=== PATIENT | male | born 1955 | race Caucasian/White ===

== ENCOUNTER 2018-03-04 04:03 | Emergency (ER) | payer MEDICAID, OTHER ==
[~2018-03-04] VITALS: Ht 177.8 cm; Wt 86.4 kg
[~2018-03-04 04:03] MED LIST: ACET-784 PO; SERT50TA12 PO; TRAZ-147 PO
[2018-03-04] MEDS ORDERED: PERTUSS(ACELL),DIPH,TET VAC/PF 0.5 ML VIAL IM ONE (05:00)
[2018-03-04] MEDS ORDERED: BUPIVACAINE HCL/PF 0.25% 10 ML VIAL INJ ONE (05:00)
[2018-03-04] MEDS ORDERED: BACITRACIN 0.9 GM PACKET OINTMENT TP ONE (05:45)
[2018-03-04 06:01] VITALS: BP 126/71
== END 2018-03-04 07:15 | disposition home or self-care (01) ==
LOC: EMS 04:04
DX: S61.217A Laceration without foreign body of left little finger without damage to nail, initial encounter (principal); F10.129 Alcohol abuse with intoxication, unspecified; G89.29 Other chronic pain; M79.604 Pain in right leg; F17.210 Nicotine dependence, cigarettes, uncomplicated; W19.XXXA Unspecified fall, initial encounter; Y93.89 Activity, other specified; Y92.89 Other specified places as the place of occurrence of the external cause; Y99.8 Other external cause status
CPT/HCPCS: 12001; 90471; 90715; 99283; 99406; J3490

== ENCOUNTER 2018-04-17 00:52 | Emergency (ER) | payer OTHER ==
[~2018-04-17] VITALS: Ht 180.3 cm; Wt 86.0 kg
[2018-04-17 06:22] VITALS: BP 137/82
[2018-04-17] MEDS ORDERED: KETOROLAC TROMETHAMINE 60 MG/2 ML VIAL IM ONE (06:45)
== END 2018-04-17 06:49 | disposition home or self-care (01) ==
LOC: EMS 00:53
DX: M25.561 Pain in right knee (principal); M79.632 Pain in left forearm; F17.210 Nicotine dependence, cigarettes, uncomplicated; W18.39XA Other fall on same level, initial encounter; Y93.89 Activity, other specified; Y92.89 Other specified places as the place of occurrence of the external cause; Y99.8 Other external cause status
CPT/HCPCS: 96372; 99283; J1885

== ENCOUNTER 2018-05-04 11:44 | Inpatient (IN) | payer OTHER ==
[~2018-05-04] VITALS: Ht 172.7 cm; Wt 75.1 kg
[2018-05-04] MEDS ORDERED: PROPOFOL 1000 MG/ISO-OSM 100 ML IV ONE (11:54)
[2018-05-04] MEDS ORDERED: ETOMIDATE 2 MG/ML 10 ML VIAL IVP ONE (12:00)
[2018-05-04] MEDS ORDERED: NALOXONE HCL 1 MG/ML 2 ML SYG IVP ONE (12:00)
[2018-05-04] MEDS ORDERED: SUCCINYLCHOLINE CHLORIDE 20 MG/ML 10 ML VIAL IVP ONE (12:00)
[2018-05-04] MEDS ORDERED: HYDR-2924 PO (12:09)
[2018-05-04] MEDS ORDERED: LISI1TAB13 PO (12:09)
[2018-05-04] MEDS ORDERED: QUET25TA PO (12:09)
[2018-05-04 12:18] LABS: APPEARANCE,URINE CLOUDY (CLEAR); BILIRUBIN,URINE NEGATIVE (NEGATIVE); GLUCOSE, URINE (UA) NEGATIVE (NEGATIVE); KETONES,URINE NEGATIVE (NEGATIVE); LEUKOCYTE ESTERASE ,URINE NEGATIVE (NEGATIVE); NITRATE,URINE NEGATIVE (NEGATIVE); OCCULT BLOOD,URINE MODERATE (NEGATIVE); PROTEIN,URINE SEE CONFIRM (NEGATIVE); UROBILINOGEN,URINE 0.2 mg/dL (<=1.0)
[2018-05-04 12:24] LABS: AMPHET/METH SCREEN,URINE NEGATIVE (NEGATIVE); BARBITURATE SCREEN, URINE NEGATIVE (NEGATIVE); BENZODIAZEPINES SCREEN,URINE NEGATIVE (NEGATIVE); CANNABINOID SCREEN,URINE NEGATIVE (NEGATIVE); COCAINE SCREEN,URINE NEGATIVE (NEGATIVE); METHADONE SCREEN, URINE NEGATIVE (NEGATIVE); OPIATE SCREEN,URINE NEGATIVE (NEGATIVE); PHENCYCLIDINE SCREEN,URINE NEGATIVE (NEGATIVE)
[2018-05-04 12:33] LABS: ABG PH 7.272 (7.35-7.450); SITE, BLOOD GAS RT RADIAL; SOURCE, BLOOD GAS ARTERIAL; TEMPERATURE, FAHRENHEIT, BG 98.6 FAHREN (96.0-98.6)
[2018-05-04 12:34] LABS: ABG BASE EXCESS -4.7 mmol/L (-2.0-3.0); ABG CARBOXYHEMOGLOBIN 4.9 % (0.0-1.5); ABG HCO3 20.5 mmol/L (22.0-26.0); ABG METHEMOGLOBIN 0.5 % (0.0-1.5); ABG OXYHEMOGLOBIN 94.5 % (94.0-100.0); ABG PCO2 49 mmHg (35-45); PO2, ARTERIAL BG 436.7 mmHg (79.0-87.0)
[2018-05-04 12:35] LABS: ABG A-A DIFF O2 227.1 mmHg (10-20.0); ABG OXYGEN CONTENT 19.8 mL/dL (15.0-23.0); ABG OXYGEN SATURATION 99.9 % (95.0-98.0); O2 DEVICE,BLOOD GAS VENTILATOR (ROOM AIR); PEEP,BG 5 cm H2O; VT, ABG 550 ml
[2018-05-04 12:36] LABS: BASOPHILS % (AUTO) 0.6 % (0.0-2.0); EOSINOPHILS % (AUTO) 0.1 % (1.0-6.0); HEMATOCRIT 42.1 % (41-53); HEMOGLOBIN 14.3 g/dL (13.5-17.5); LYMPHOCYTES # (AUTO) 1.4 K/uL (1.0-4.8); LYMPHOCYTES % (AUTO) 9.8 % (22.0-44.0); MEAN CORPUSCULAR HEMOGLOBIN 33.7 pg (26.0-34.0); MEAN CORPUSCULAR HGB CONC 33.9 G/dL (31.0-37.0); MEAN CORPUSCULAR VOLUME 99 fL (80-100); MONOCYTES # (AUTO) 0.7 K/uL (0.1-1.0); MONOCYTES % (AUTO) 4.6 % (2.0-9.0); NEUTROPHILS # (AUTO) 12.4 K/uL (1.8-7.7); NEUTROPHILS % (AUTO) 84.9 % (40.0-70.0); PLATELET COUNT (AUTO) 235 K/uL (150-450); RED BLOOD CELL COUNT(AUTO) 4.24 MIL/uL (4.50-5.90); RED CELL DISTRIBUTION WIDTH 14.5 % (11.5-14.5)
[2018-05-04 12:46] LABS: SULFOSALICYLIC ACID,URINE Trace (Negative)
[2018-05-04 12:47] LABS: INR 0.9 (0.9-1.1); PROTHROMBIN TIME 9.6 SEC (9.4-11.6)
[2018-05-04 12:48] LABS: BACTERIA,URINE Few /HPF (None Seen)
[2018-05-04 12:49] LABS: SQUAMOUS EPITHELIAL CELL,UR Rare /LPF (None Seen)
[2018-05-04 12:49] LABS: ANION GAP 11 mmol/L (8-16); CALCIUM, TOTAL 8.1 mg/dL (8.8-10.5); CARBON DIOXIDE 25 mmol/L (22-29); CHLORIDE 105 mmol/L (98-107); CREATININE 0.94 mg/dL (0.60-1.30); GLOMERULAR FILTR. RATE CALC > 60 mL/min (>60); GLUCOSE,RANDOM 150 mg/dL (70-110); POTASSIUM 4.8 mmol/L (3.5-5.1); SODIUM SERUM 141 mmol/L (136-145); UREA NITROGEN, BLOOD 13 mg/dL (7-18)
[2018-05-04 12:51] LABS: HYALINE CASTS, URINE 0-2 /LPF (None Seen)
[2018-05-04 12:52] LABS: AMORPHOUS SEDIMENT,UR Few /LPF (None Seen)
[2018-05-04] MEDS: PROPOFOL 1000 MG/ISO-OSM 100 ML IV PRN ×2 (12:52→21:08)
[2018-05-04 12:56] LABS: AMMONIA 46 umol/L (11-32); SALICYLATE 3.7 mg/dL (2.8-20.0)
[2018-05-04 12:57] LABS: TROPONIN I < 0.02 ng/mL (0.00-0.05)
[2018-05-04 13:13] LABS: ALANINE AMINOTRANSFERASE 37 U/L (12-78); ALBUMIN 3.7 g/dL (3.4-5.0); ALKALINE PHOSPHATASE 113 U/L (46-116); ASPARTATE AMINOTRANSFERASE 40 U/L (15-37); BILIRUBIN,TOTAL 0.3 mg/dL (0.1-1.0); CREATINE KINASE MB 2.1 ng/mL (0-5); CREATINE KINASE, TOTAL 303 U/L (39-308); TOTAL PROTEIN, SERUM 7.6 g/dL (6.4-8.2)
[2018-05-04 13:27] LABS: ACETAMINOPHEN < 2 mcg/mL (10-30)
[2018-05-04] MEDS ORDERED: LORazepam 2 MG/ML VIAL IVP PRN (13:30)
[2018-05-04] MEDS ORDERED: LevETIRAcetam 1,000 MG in DEXTROSE 5%-WATER 100 ML IV ONE (13:30)
[2018-05-04] MEDS ORDERED: MAGNESIUM HYDROXIDE SUSPENSION 30 ML UDCUP PO PRN (13:30)
[2018-05-04] MEDS ORDERED: IOVERSOL 350 MG/ML 100 ML VIAL ONE (14:00)
[2018-05-04 16:00] VITALS: BP 156/71
[2018-05-04 20:00] VITALS: BP 163/67
[2018-05-04] MEDS: DOCUSATE SODIUM 100 MG CAPSULE PO SCH (21:08)
[2018-05-04 22:00] VITALS: BP 134/67
[2018-05-05] VITALS (8 sets, daily range): BP systolic 126–169; BP diastolic 43–74
[2018-05-05] MEDS ORDERED: PROPOFOL 1000 MG/ISO-OSM 100 ML IV PRN (03:12)
[2018-05-05 05:06] LABS: BASOPHILS % (AUTO) 0.5 % (0.0-2.0); HEMATOCRIT 39.2 % (41-53); HEMOGLOBIN 13.5 g/dL (13.5-17.5); LYMPHOCYTES # (AUTO) 2.6 K/uL (1.0-4.8); MEAN CORPUSCULAR HEMOGLOBIN 33.8 pg (26.0-34.0); MEAN CORPUSCULAR HGB CONC 34.4 G/dL (31.0-37.0); MEAN CORPUSCULAR VOLUME 98 fL (80-100); MONOCYTES # (AUTO) 0.7 K/uL (0.1-1.0); MONOCYTES % (AUTO) 7.1 % (2.0-9.0); NEUTROPHILS # (AUTO) 6.3 K/uL (1.8-7.7); NEUTROPHILS % (AUTO) 64.4 % (40.0-70.0); PLATELET COUNT (AUTO) 202 K/uL (150-450); RED BLOOD CELL COUNT(AUTO) 3.99 MIL/uL (4.50-5.90); RED CELL DISTRIBUTION WIDTH 14.1 % (11.5-14.5)
[2018-05-05 05:23] LABS: ANION GAP 7 mmol/L (8-16); CALCIUM, TOTAL 8.1 mg/dL (8.8-10.5); CARBON DIOXIDE 27 mmol/L (22-29); CHLORIDE 106 mmol/L (98-107); CREATININE 0.85 mg/dL (0.60-1.30); GLOMERULAR FILTR. RATE CALC > 60 mL/min (>60); GLUCOSE,RANDOM 84 mg/dL (70-110); POTASSIUM 3.8 mmol/L (3.5-5.1); SODIUM SERUM 140 mmol/L (136-145); UREA NITROGEN, BLOOD 10 mg/dL (7-18)
[2018-05-05 08:35] LABS: ABG A-A DIFF O2 116.3 mmHg (10-20.0); ABG BASE EXCESS -0.2 mmol/L (-2.0-3.0); ABG CARBOXYHEMOGLOBIN 1.3 % (0.0-1.5); ABG HCO3 24.7 mmol/L (22.0-26.0); ABG METHEMOGLOBIN 0.3 % (0.0-1.5); ABG OXYGEN CONTENT 18.5 mL/dL (15.0-23.0); ABG OXYGEN SATURATION 98.1 % (95.0-98.0); ABG OXYHEMOGLOBIN 96.5 % (94.0-100.0); ABG PCO2 35 mmHg (35-45); ABG PH 7.454 (7.35-7.450); ABG TOTAL HEMOGLOBIN 13.6 G/dL (12.0-18.0); PO2, ARTERIAL BG 93.6 mmHg (79.0-87.0); SOURCE, BLOOD GAS ARTERIAL; TEMPERATURE, FAHRENHEIT, BG 97.3 FAHREN (96.0-98.6)
[2018-05-05 08:36] LABS: O2 DEVICE,BLOOD GAS VENTILATOR (ROOM AIR); PEEP,BG 5 cm H2O; SITE, BLOOD GAS RT RADIAL; VT, ABG 550 ml
[2018-05-05] MEDS: DOCUSATE SODIUM 100 MG CAPSULE PO SCH ×2 (09:00→21:00)
[2018-05-05] MEDS: ASPIRIN 81 MG CHEWABLE TABLET PO SCH (09:00)
[2018-05-05] MEDS: PANTOPRAZOLE SODIUM 40 MG/VIAL IVP SCH (09:46)
[2018-05-05 12:10] LABS: THYROID STIMULATING HORMONE 3.43 uIU/mL (0.36-3.74)
[2018-05-05] MEDS: AmLODIPine BESYLATE 5 MG TABLET PO SCH (15:03)
[2018-05-05] MEDS: ACETAMINOPHEN 325 MG TABLET PO PRN (15:03)
[2018-05-06] VITALS (7 sets, daily range): BP systolic 118–141; BP diastolic 41–76
[2018-05-06] MEDS: AmLODIPine BESYLATE 5 MG TABLET PO SCH (07:58)
[2018-05-06] MEDS: ASPIRIN 81 MG CHEWABLE TABLET PO SCH (07:58)
[2018-05-06] MEDS: PANTOPRAZOLE SODIUM 40 MG/VIAL IVP SCH (07:58)
[2018-05-06] MEDS: ACETAMINOPHEN 325 MG TABLET PO PRN ×3 (07:59→20:06)
[2018-05-06] MEDS: DOCUSATE SODIUM 100 MG CAPSULE PO SCH ×2 (07:59→20:01)
[2018-05-06] MEDS: AmLODIPine BESYLATE 10 MG TABLET PO SCH (09:00)
[2018-05-06] MEDS ORDERED: AmLODIPine BESYLATE 5 MG TABLET PO ONE (12:00)
[2018-05-06] MEDS: CefTRIAXone SODIUM 1 GM in DEXTROSE 5%-WATER 10 ML IV SCH (12:55)
[2018-05-06] MEDS: AMINO ACIDS/PROTEIN HYDROLYS 30 ML TUBE PO SCH (20:01)
[2018-05-07] VITALS (10 sets, daily range): BP systolic 108–156; BP diastolic 23–105
[2018-05-07] MEDS: ACETAMINOPHEN 325 MG TABLET PO PRN ×2 (04:39→17:02)
[2018-05-07 06:18] LABS: ANION GAP 6 mmol/L (8-16); CALCIUM, TOTAL 8.6 mg/dL (8.8-10.5); CARBON DIOXIDE 29 mmol/L (22-29); CHLORIDE 104 mmol/L (98-107); CREATININE 0.83 mg/dL (0.60-1.30); GLOMERULAR FILTR. RATE CALC > 60 mL/min (>60); GLUCOSE,RANDOM 87 mg/dL (70-110); POTASSIUM 3.7 mmol/L (3.5-5.1); SODIUM SERUM 139 mmol/L (136-145); UREA NITROGEN, BLOOD 12 mg/dL (7-18)
[2018-05-07 06:20] LABS: BASOPHILS % (AUTO) 0.5 % (0.0-2.0); EOSINOPHILS % (AUTO) 1.2 % (1.0-6.0); HEMATOCRIT 42.8 % (41-53); HEMOGLOBIN 15.2 g/dL (13.5-17.5); LYMPHOCYTES # (AUTO) 2.3 K/uL (1.0-4.8); LYMPHOCYTES % (AUTO) 33.1 % (22.0-44.0); MEAN CORPUSCULAR HEMOGLOBIN 34.5 pg (26.0-34.0); MEAN CORPUSCULAR HGB CONC 35.5 G/dL (31.0-37.0); MEAN CORPUSCULAR VOLUME 97 fL (80-100); MONOCYTES # (AUTO) 0.5 K/uL (0.1-1.0); MONOCYTES % (AUTO) 7.2 % (2.0-9.0); NEUTROPHILS # (AUTO) 4.1 K/uL (1.8-7.7); PLATELET COUNT (AUTO) 224 K/uL (150-450); RED CELL DISTRIBUTION WIDTH 13.9 % (11.5-14.5)
[2018-05-07] MEDS ORDERED: AmLODIPine BESYLATE 10 MG TABLET PO SCH (09:00)
[2018-05-07] MEDS: PANTOPRAZOLE SODIUM 40 MG/VIAL IVP SCH (09:14)
[2018-05-07] MEDS: ASPIRIN 81 MG CHEWABLE TABLET PO SCH (09:14)
[2018-05-07] MEDS: AmLODIPine BESYLATE 10 MG TABLET PO SCH (09:14)
[2018-05-07] MEDS: DOCUSATE SODIUM 100 MG CAPSULE PO SCH ×2 (09:15→21:08)
[2018-05-07] MEDS: AMINO ACIDS/PROTEIN HYDROLYS 30 ML TUBE PO SCH (09:15)
[2018-05-07] MEDS ORDERED: MAGNESIUM SULFATE 4 GM/WATER 100 ML IV PRN (10:15)
[2018-05-07] MEDS ORDERED: POTASSIUM CHLORIDE 20 MEQ ER TABLET PO PRN ×2 (10:15)
[2018-05-07] MEDS ORDERED: POTASSIUM CHLORIDE 10% 40 MEQ/30 ML LIQUID UDCUP PO PRN (10:15)
[2018-05-07] MEDS ORDERED: POTASSIUM CHL 10 MEQ/WATER 50 ML IV PRN (10:15)
[2018-05-07] MEDS ORDERED: MAGNESIUM SULFATE 2 GM/WATER 50 ML IV PRN (10:15)
[2018-05-07] MEDS: MAGNESIUM OXIDE 400 MG TABLET PO PRN ×3 (11:08→17:02)
[2018-05-07] MEDS: CefTRIAXone SODIUM 1 GM in DEXTROSE 5%-WATER 10 ML IV SCH (11:09)
[2018-05-07 11:47] LABS: ALBUMIN 3.5 g/dL (3.4-5.0)
[2018-05-08] VITALS (8 sets, daily range): BP systolic 116–157; BP diastolic 41–74
[2018-05-08 05:16] LABS: BASOPHILS % (AUTO) 0.5 % (0.0-2.0); EOSINOPHILS % (AUTO) 0.9 % (1.0-6.0); HEMATOCRIT 41.8 % (41-53); HEMOGLOBIN 14.5 g/dL (13.5-17.5); LYMPHOCYTES # (AUTO) 2.6 K/uL (1.0-4.8); LYMPHOCYTES % (AUTO) 27.4 % (22.0-44.0); MEAN CORPUSCULAR HEMOGLOBIN 33.9 pg (26.0-34.0); MEAN CORPUSCULAR HGB CONC 34.7 G/dL (31.0-37.0); MEAN CORPUSCULAR VOLUME 98 fL (80-100); MONOCYTES # (AUTO) 0.8 K/uL (0.1-1.0); MONOCYTES % (AUTO) 8.5 % (2.0-9.0); NEUTROPHILS % (AUTO) 62.7 % (40.0-70.0); PLATELET COUNT (AUTO) 224 K/uL (150-450); RED BLOOD CELL COUNT(AUTO) 4.27 MIL/uL (4.50-5.90); RED CELL DISTRIBUTION WIDTH 13.7 % (11.5-14.5)
[2018-05-08 05:26] LABS: ALANINE AMINOTRANSFERASE 28 U/L (12-78); ALBUMIN 3.5 g/dL (3.4-5.0); ALKALINE PHOSPHATASE 90 U/L (46-116); ANION GAP 5 mmol/L (8-16); ASPARTATE AMINOTRANSFERASE 31 U/L (15-37); BILIRUBIN,TOTAL 0.3 mg/dL (0.1-1.0); CALCIUM, TOTAL 8.7 mg/dL (8.8-10.5); CARBON DIOXIDE 32 mmol/L (22-29); CHLORIDE 104 mmol/L (98-107); GLOMERULAR FILTR. RATE CALC > 60 mL/min (>60); GLUCOSE,RANDOM 90 mg/dL (70-110); PHOSPHORUS 3.3 mg/dL (2.5-4.9); POTASSIUM 4.5 mmol/L (3.5-5.1); SODIUM SERUM 141 mmol/L (136-145); TOTAL PROTEIN, SERUM 7.3 g/dL (6.4-8.2); UREA NITROGEN, BLOOD 13 mg/dL (7-18)
[2018-05-08] MEDS: PANTOPRAZOLE SODIUM 40 MG/VIAL IVP SCH (08:52)
[2018-05-08] MEDS: AmLODIPine BESYLATE 10 MG TABLET PO SCH (09:00)
[2018-05-08] MEDS: DOCUSATE SODIUM 100 MG CAPSULE PO SCH ×2 (09:00→21:17)
[2018-05-08] MEDS: ASPIRIN 81 MG CHEWABLE TABLET PO SCH (09:00)
[2018-05-08] MEDS: CefTRIAXone SODIUM 1 GM in DEXTROSE 5%-WATER 10 ML IV SCH (11:25)
[2018-05-08] MEDS: ACETAMINOPHEN 325 MG TABLET PO PRN (14:02)
[2018-05-08] MEDS ORDERED: ETOMIDATE 2 MG/ML 10 ML VIAL ONE (17:21)
[2018-05-08] MEDS ORDERED: SUCCINYLCHOLINE CHLORIDE 20 MG/ML 10 ML VIAL ONE (17:21)
[2018-05-09] VITALS (10 sets, daily range): BP systolic 119–161; BP diastolic 51–78
[2018-05-09 05:30] LABS: BASOPHILS % (AUTO) 0.6 % (0.0-2.0); EOSINOPHILS % (AUTO) 1.4 % (1.0-6.0); HEMATOCRIT 42.5 % (41-53); HEMOGLOBIN 14.7 g/dL (13.5-17.5); LYMPHOCYTES # (AUTO) 2.4 K/uL (1.0-4.8); LYMPHOCYTES % (AUTO) 35.4 % (22.0-44.0); MEAN CORPUSCULAR HEMOGLOBIN 33.6 pg (26.0-34.0); MEAN CORPUSCULAR HGB CONC 34.5 G/dL (31.0-37.0); MEAN CORPUSCULAR VOLUME 98 fL (80-100); MONOCYTES # (AUTO) 0.5 K/uL (0.1-1.0); MONOCYTES % (AUTO) 8.1 % (2.0-9.0); NEUTROPHILS # (AUTO) 3.7 K/uL (1.8-7.7); NEUTROPHILS % (AUTO) 54.5 % (40.0-70.0); PLATELET COUNT (AUTO) 238 K/uL (150-450); RED BLOOD CELL COUNT(AUTO) 4.36 MIL/uL (4.50-5.90); RED CELL DISTRIBUTION WIDTH 13.9 % (11.5-14.5)
[2018-05-09 05:49] LABS: ANION GAP 8 mmol/L (8-16); CALCIUM, TOTAL 8.9 mg/dL (8.8-10.5); CARBON DIOXIDE 29 mmol/L (22-29); CHLORIDE 103 mmol/L (98-107); CREATININE 0.81 mg/dL (0.60-1.30); GLOMERULAR FILTR. RATE CALC > 60 mL/min (>60); GLUCOSE,RANDOM 89 mg/dL (70-110); POTASSIUM 4.6 mmol/L (3.5-5.1); SODIUM SERUM 140 mmol/L (136-145); UREA NITROGEN, BLOOD 15 mg/dL (7-18)
[2018-05-09 06:29] LABS: INR 0.9 (0.9-1.1); PROTHROMBIN TIME 9.7 SEC (9.4-11.6)
[2018-05-09] MEDS: ASPIRIN 81 MG CHEWABLE TABLET PO SCH (08:37)
[2018-05-09] MEDS: DULoxetine HCL 20 MG CAPSULE PO SCH (08:40)
[2018-05-09] MEDS: MULTIVITAMINS WITH MINERALS, THERAPEUTIC TABLET PO SCH (08:41)
[2018-05-09] MEDS: DOCUSATE SODIUM 100 MG CAPSULE PO SCH ×2 (09:00→21:00)
[2018-05-09] MEDS: AmLODIPine BESYLATE 10 MG TABLET PO SCH ×2 (09:00→14:21)
[2018-05-09] MEDS: PANTOPRAZOLE SODIUM 40 MG/VIAL IVP SCH (09:40)
[2018-05-09] MEDS ORDERED: IOHEXOL 300 MG/ML 50 ML VIAL ONE (10:05)
[2018-05-09] MEDS ORDERED: LIDOCAINE HCL/PF 1% 30 ML VIAL ONE ×2 (10:05→11:32)
[2018-05-09] MEDS ORDERED: SODIUM BICARBONATE 50 MEQ/50 ML VIAL ONE (10:05)
[2018-05-09] MEDS ORDERED: BUPIVACAINE LIPOSOME/PF 1.3%-13.3MG/ML SUSPENSION 10 ML VIAL INJ ONE (11:45)
[2018-05-09] MEDS ORDERED: LIDOCAINE 1% 30 ML/SOD BICARB 8.4% 4 ML SQ ONE (11:45)
[2018-05-09] MEDS: CefTRIAXone SODIUM 1 GM in DEXTROSE 5%-WATER 10 ML IV SCH (14:19)
[2018-05-09] MEDS ORDERED: SODIUM CHLORIDE 0.9% 100 ML ONE ×2 (17:02→20:59)
[2018-05-09] MEDS: CeFAZolin 1 GM/DEXTROSE 50 ML IV SCH ×2 (17:07→23:19)
[2018-05-09] MEDS: ACETAMINOPHEN 325 MG TABLET PO PRN (21:01)
[2018-05-10] VITALS (8 sets, daily range): BP systolic 127–151; BP diastolic 60–76
[2018-05-10] MEDS: CeFAZolin 1 GM/DEXTROSE 50 ML IV SCH (04:42)
[2018-05-10] MEDS ORDERED: LIDOCAINE HCL/PF 2% 5 ML SYRINGE IVP ONE (05:21)
[2018-05-10] MEDS ORDERED: GLYCOPYRROLATE 0.2 MG/ML VIAL IM ONE (05:21)
[2018-05-10] MEDS ORDERED: MIDAZOLAM HCL 2 MG/2 ML VIAL IVP ONE (05:21)
[2018-05-10] MEDS: PANTOPRAZOLE SODIUM 40 MG/VIAL IVP SCH (09:36)
[2018-05-10] MEDS: AmLODIPine BESYLATE 10 MG TABLET PO SCH (09:36)
[2018-05-10] MEDS: MULTIVITAMINS WITH MINERALS, THERAPEUTIC TABLET PO SCH (09:36)
[2018-05-10] MEDS: ASPIRIN 81 MG CHEWABLE TABLET PO SCH (09:36)
[2018-05-10] MEDS: DULoxetine HCL 20 MG CAPSULE PO SCH (09:36)
[2018-05-10] MEDS: DOCUSATE SODIUM 100 MG CAPSULE PO SCH ×2 (09:37→20:17)
[2018-05-10] MEDS: CefTRIAXone SODIUM 1 GM in DEXTROSE 5%-WATER 10 ML IV SCH (11:29)
[2018-05-11 03:59] VITALS: BP 122/72
[2018-05-11 07:35] VITALS: BP 136/67
[2018-05-11] MEDS: ASPIRIN 81 MG CHEWABLE TABLET PO SCH (08:14)
[2018-05-11] MEDS: AmLODIPine BESYLATE 10 MG TABLET PO SCH (08:14)
[2018-05-11] MEDS: MULTIVITAMINS WITH MINERALS, THERAPEUTIC TABLET PO SCH (08:14)
[2018-05-11] MEDS: DULoxetine HCL 20 MG CAPSULE PO SCH (08:14)
[2018-05-11] MEDS: PANTOPRAZOLE SODIUM 40 MG/VIAL IVP SCH (08:15)
[2018-05-11] MEDS: DOCUSATE SODIUM 100 MG CAPSULE PO SCH (08:15)
[2018-05-11 11:34] VITALS: BP 145/82
[2018-05-11] MEDS: CefTRIAXone SODIUM 1 GM in DEXTROSE 5%-WATER 10 ML IV SCH (12:13)
[2018-05-11] MEDS ORDERED: ASPI-556 PO (14:59)
[2018-05-11] MEDS ORDERED: AMLO5TAB4 PO (15:00)
[2018-05-11] MEDS ORDERED: DULO20CA30 PO (15:02)
[2018-05-11 16:11] VITALS: BP 122/64
== END 2018-05-11 16:45 | disposition home or self-care (01) | DRG 171 ==
LOC: EMS 11:44 → ICU 14:34 → 5S 05-10 18:35
PROVIDERS: ADMIT Internal Medicine; ATTEND Internal Medicine
PROC: 5A1935Z Respiratory Ventilation, Less than 24 Consecutive Hours (ICD-10-PCS; principal; 2018-05-04)
PROC: 0BH17EZ Insertion of Endotracheal Airway into Trachea, Via Natural or Artificial Opening (ICD-10-PCS; 2018-05-04)
PROC: 5A09357 Assistance with Respiratory Ventilation, Less than 24 Consecutive Hours, Continuous Positive Airway Pressure (ICD-10-PCS; 2018-05-04)
PROC: 05HY33Z Insertion of Infusion Device into Upper Vein, Percutaneous Approach (ICD-10-PCS; 2018-05-08)
PROC: B54NZZA Ultrasonography of Left Upper Extremity Veins, Guidance (ICD-10-PCS; 2018-05-08)
PROC: 02HK3JZ Insertion of Pacemaker Lead into Right Ventricle, Percutaneous Approach (ICD-10-PCS; 2018-05-09)
PROC: 0JH606Z Insertion of Pacemaker, Dual Chamber into Chest Subcutaneous Tissue and Fascia, Open Approach (ICD-10-PCS; 2018-05-09)
PROC: 02H63JZ Insertion of Pacemaker Lead into Right Atrium, Percutaneous Approach (ICD-10-PCS; 2018-05-09)
DX: I49.5 Sick sinus syndrome (principal); J96.00 Acute respiratory failure, unspecified whether with hypoxia or hypercapnia; Z99.11 Dependence on respirator [ventilator] status; G93.40 Encephalopathy, unspecified; F33.2 Major depressive disorder, recurrent severe without psychotic features; E87.2 Acidosis; I45.89 Other specified conduction disorders; I72.6 Aneurysm of vertebral artery; D72.829 Elevated white blood cell count, unspecified; I10 Essential (primary) hypertension; F17.210 Nicotine dependence, cigarettes, uncomplicated; N39.0 Urinary tract infection, site not specified; G89.29 Other chronic pain; M54.5 Low back pain; F20.9 Schizophrenia, unspecified; Z79.82 Long term (current) use of aspirin
CPT/HCPCS: 31500; 33208; 36245; 36569; 51702; 70450; 70496; 76000; 76937; 82805; 83735; 84100; 84132; 84443; 87081; 87086; 93005; 93306; 94002; 94003; 97162; 97530; 99291; 99292; C9113; G0480; G0481; J0330; J0690; J0696; J0712; J2060; J2250; J2704; J3490; J7050; J7060; Q9967

== ENCOUNTER 2018-05-26 16:03 | Emergency (ER) | payer MEDICARE, OTHER ==
[~2018-05-26] VITALS: Ht 182.9 cm; Wt 81.8 kg
[~2018-05-26 16:03] MED LIST changes: -ACET-784 PO; +AMLO5TAB4 PO; +ASPI-556 PO; +DULO20CA30 PO; -SERT50TA12 PO; -TRAZ-147 PO
[2018-05-26 16:04] VITALS: BP 137/90
[2018-05-26] MEDS ORDERED: BACITRACIN 0.9 GM PACKET OINTMENT TP ONE (18:15)
[2018-05-26] MEDS ORDERED: KETOROLAC TROMETHAMINE 10 MG TABLET PO ONE (18:15)
== END 2018-05-26 19:11 | disposition home or self-care (01) ==
LOC: EMS 16:03
DX: S31.21XA Laceration without foreign body of penis, initial encounter (principal); M25.571 Pain in right ankle and joints of right foot; M25.542 Pain in joints of left hand; H61.23 Impacted cerumen, bilateral; I10 Essential (primary) hypertension; F17.210 Nicotine dependence, cigarettes, uncomplicated; X58.XXXA Exposure to other specified factors, initial encounter; Y93.89 Activity, other specified; Y92.89 Other specified places as the place of occurrence of the external cause; Y99.8 Other external cause status
CPT/HCPCS: 99283

== ENCOUNTER 2019-03-04 14:02 | Emergency (ER) | payer OTHER ==
[~2019-03-04] VITALS: Ht 170.2 cm; Wt 79.5 kg
[2019-03-04] MEDS ORDERED: HydrOXYzine HCL 25 MG TABLET PO ONE (16:15)
[2019-03-04] MEDS ORDERED: PredniSONE 20 MG TABLET PO ONE (16:15)
[2019-03-04] MEDS ORDERED: PERMETHRIN 5% 60 GM CREAM TP ONE (16:15)
[2019-03-04] MEDS ORDERED: CEPHALEXIN MONOHYDRATE 500 MG CAPSULE PO ONE (16:15)
[2019-03-04 17:00] VITALS: BP 138/88
== END 2019-03-04 17:42 | disposition home or self-care (01) ==
LOC: EMS 14:02
DX: B86 Scabies (principal); F17.210 Nicotine dependence, cigarettes, uncomplicated; I10 Essential (primary) hypertension; F32.9 Major depressive disorder, single episode, unspecified; Z79.82 Long term (current) use of aspirin
CPT/HCPCS: 99284; 99406; J7512

== ENCOUNTER 2019-08-05 23:02 | Inpatient (IN) | payer MEDICARE, OTHER ==
[~2019-08-05] VITALS: Ht 182.9 cm; Wt 79.8 kg
[2019-08-05 23:36] LABS: GLUCOSE,POINT OF CARE 115 MG/DL (70-110)
[2019-08-06 01:56] LABS: BASOPHILS % (AUTO) 0.5 % (0.0-2.0); EOSINOPHILS % (AUTO) 0.1 % (1.0-6.0); HEMATOCRIT 42.3 % (41-53); HEMOGLOBIN 14.3 g/dL (13.5-17.5); LYMPHOCYTES % (AUTO) 12.1 % (22.0-44.0); MEAN CORPUSCULAR HEMOGLOBIN 32.9 pg (26.0-34.0); MEAN CORPUSCULAR HGB CONC 33.8 G/dL (31.0-37.0); MEAN CORPUSCULAR VOLUME 97 fL (80-100); MONOCYTES # (AUTO) 0.9 K/uL (0.1-1.0); MONOCYTES % (AUTO) 10.7 % (2.0-9.0); NEUTROPHILS # (AUTO) 6.4 K/uL (1.8-7.7); NEUTROPHILS % (AUTO) 76.6 % (40.0-70.0); PLATELET COUNT (AUTO) 223 K/uL (150-450); RED BLOOD CELL COUNT(AUTO) 4.34 MIL/uL (4.50-5.90)
[2019-08-06 02:04] LABS: ANION GAP 7 mmol/L (8-16); CALCIUM, TOTAL 8.4 mg/dL (8.8-10.5); CARBON DIOXIDE 29 mmol/L (22-29); CHLORIDE 102 mmol/L (98-107); GLOMERULAR FILTR. RATE CALC > 60 mL/min (>60); GLUCOSE,RANDOM 108 mg/dL (70-110); POTASSIUM 4.6 mmol/L (3.5-5.1); SODIUM SERUM 138 mmol/L (136-145); UREA NITROGEN, BLOOD 14 mg/dL (7-18)
[2019-08-06 02:10] LABS: ALBUMIN 3.9 g/dL (3.4-5.0); ALKALINE PHOSPHATASE 111 U/L (46-116); ASPARTATE AMINOTRANSFERASE 25 U/L (15-37); BILIRUBIN,TOTAL 0.5 mg/dL (0.1-1.0); TOTAL PROTEIN, SERUM 7.7 g/dL (6.4-8.2)
[2019-08-06 02:19] LABS: ALANINE AMINOTRANSFERASE 25 U/L (12-78)
[2019-08-06] MEDS ORDERED: IBUPROFEN 800 MG TABLET PO ONE (02:30)
[2019-08-06] MEDS ORDERED: HALOPERIDOL 5 MG TABLET PO PRN (09:30)
[2019-08-06] MEDS ORDERED: MAGNESIUM HYDROXIDE SUSPENSION 30 ML UDCUP PO PRN (14:30)
[2019-08-06] MEDS ORDERED: LOPERAMIDE HCL 2 MG CAPSULE PO PRN (14:30)
[2019-08-06] MEDS ORDERED: ALBUTEROL SULFATE HFA 90 MCG/PUFF 8 GM INHALER IH PRN (14:30)
[2019-08-06] MEDS ORDERED: GuaiFENesin/D-METHORPHAN [SUGAR-FREE] 200-20MG/10 ML SYRUP UDCUP PO PRN (14:30)
[2019-08-06] MEDS ORDERED: DOCUSATE SODIUM 100 MG CAPSULE PO PRN (14:30)
[2019-08-06] MEDS ORDERED: NICOTINE 14 MG/24 HOUR PATCH TD PRN (14:30)
[2019-08-06] MEDS ORDERED: ACETAMINOPHEN 325 MG TABLET PO PRN (14:30)
[2019-08-06] MEDS ORDERED: CloNIDine HCL 0.1 MG TABLET PO PRN (14:30)
[2019-08-06] MEDS ORDERED: ONDANSETRON HCL 4 MG TABLET PO PRN (14:30)
[2019-08-06] MEDS ORDERED: MAG HYDROX/AL HYDROX/SIMETH ES 30 ML SUSPENSION UDCUP PO PRN (14:30)
[2019-08-06] MEDS ORDERED: PETROLATUM,WHITE 28 GM JELLY TP PRN (14:30)
[2019-08-06] MEDS ORDERED: INFLUENZA VIRUS VACCINE QVS 2019-20 (3YR+)/PF 60 MCG/0.5 ML SYRINGE IM ONE (14:45)
[2019-08-06] MEDS ORDERED: PNEUMOCOCCAL VACCINE POLYVALENT 0.5 ML VIAL [PPSV23] IM ONE (14:45)
[2019-08-06 16:11] VITALS: BP 123/75
[2019-08-06] MEDS: GABAPENTIN 300 MG CAPSULE PO SCH (17:17)
[2019-08-06] MEDS: LevETIRAcetam 500 MG TABLET PO SCH (17:17)
[2019-08-06] MEDS: ATORVASTATIN CALCIUM 20 MG TABLET PO SCH (20:10)
[2019-08-07 04:58] VITALS: BP 126/72
[2019-08-07] MEDS: IBUPROFEN 400 MG TABLET PO PRN (04:58)
[2019-08-07 08:14] LABS: CHOL/HDL RATIO 3.9 (4.2-7.3)
[2019-08-07] MEDS: GABAPENTIN 300 MG CAPSULE PO SCH ×2 (08:21→17:23)
[2019-08-07] MEDS: LevETIRAcetam 500 MG TABLET PO SCH ×2 (08:21→17:23)
[2019-08-07] MEDS: LISINOPRIL 20 MG TABLET PO SCH (08:21)
[2019-08-07 08:26] VITALS: BP 122/70
[2019-08-07] MEDS: LORazepam 2 MG TABLET PO PRN (10:51)
[2019-08-07 16:17] VITALS: BP 125/64
[2019-08-07] MEDS: ATORVASTATIN CALCIUM 20 MG TABLET PO SCH (21:06)
[2019-08-08 05:11] VITALS: BP 126/68
[2019-08-08] MEDS: IBUPROFEN 400 MG TABLET PO PRN (05:14)
[2019-08-08 08:30] VITALS: BP 132/68
[2019-08-08] MEDS: LISINOPRIL 20 MG TABLET PO SCH (09:03)
[2019-08-08] MEDS: ARIPiprazole 5 MG TABLET PO SCH (09:03)
[2019-08-08] MEDS: GABAPENTIN 300 MG CAPSULE PO SCH ×2 (09:03→16:27)
[2019-08-08] MEDS: LevETIRAcetam 500 MG TABLET PO SCH ×2 (09:04→16:27)
[2019-08-08] MEDS: ESCITALOPRAM OXALATE 10 MG TABLET PO SCH (09:04)
[2019-08-08] MEDS ORDERED: TraMADol HCL 50 MG TABLET PO PRN (16:00)
[2019-08-08 16:19] VITALS: BP 139/66
[2019-08-08] MEDS: ATORVASTATIN CALCIUM 20 MG TABLET PO SCH (20:47)
[2019-08-09 06:47] VITALS: BP 115/68
[2019-08-09 08:28] VITALS: BP 136/84
[2019-08-09] MEDS: LISINOPRIL 20 MG TABLET PO SCH (08:45)
[2019-08-09] MEDS: ARIPiprazole 5 MG TABLET PO SCH (08:46)
[2019-08-09] MEDS: GABAPENTIN 300 MG CAPSULE PO SCH ×2 (08:46→16:27)
[2019-08-09] MEDS: ESCITALOPRAM OXALATE 10 MG TABLET PO SCH (08:46)
[2019-08-09] MEDS: LevETIRAcetam 500 MG TABLET PO SCH ×2 (08:46→16:27)
[2019-08-09 10:50] VITALS: BP 128/80
[2019-08-09 16:14] VITALS: BP 125/72
[2019-08-09] MEDS: ATORVASTATIN CALCIUM 20 MG TABLET PO SCH (20:18)
[2019-08-10 07:17] VITALS: BP 120/81
[2019-08-10 08:00] VITALS: BP 121/74
[2019-08-10] MEDS: ARIPiprazole 10 MG TABLET PO SCH (08:27)
[2019-08-10] MEDS: GABAPENTIN 300 MG CAPSULE PO SCH ×2 (08:28→16:38)
[2019-08-10] MEDS: LevETIRAcetam 500 MG TABLET PO SCH ×2 (08:28→16:38)
[2019-08-10] MEDS: ESCITALOPRAM OXALATE 10 MG TABLET PO SCH (08:28)
[2019-08-10] MEDS: LISINOPRIL 20 MG TABLET PO SCH (08:28)
[2019-08-10] MEDS: BACITRACIN 28.4 GM OINTMENT TP SCH ×2 (08:29→17:05)
[2019-08-10 16:22] VITALS: BP 126/86
[2019-08-10] MEDS: ATORVASTATIN CALCIUM 20 MG TABLET PO SCH (20:34)
[2019-08-11 06:33] VITALS: BP 109/67
[2019-08-11] MEDS: ESCITALOPRAM OXALATE 10 MG TABLET PO SCH (08:50)
[2019-08-11] MEDS: LevETIRAcetam 500 MG TABLET PO SCH ×2 (08:50→16:38)
[2019-08-11] MEDS: BACITRACIN 28.4 GM OINTMENT TP SCH ×2 (08:51→16:38)
[2019-08-11] MEDS: LISINOPRIL 20 MG TABLET PO SCH (08:51)
[2019-08-11] MEDS: GABAPENTIN 300 MG CAPSULE PO SCH ×2 (08:51→16:38)
[2019-08-11] MEDS: ARIPiprazole 10 MG TABLET PO SCH (08:51)
[2019-08-11 09:07] VITALS: BP 132/89
[2019-08-11 16:14] VITALS: BP 116/70
[2019-08-11] MEDS: ATORVASTATIN CALCIUM 20 MG TABLET PO SCH (20:33)
[2019-08-12 00:17] VITALS: BP 120/81
[2019-08-12 08:23] VITALS: BP 140/65
[2019-08-12] MEDS: ESCITALOPRAM OXALATE 20 MG TABLET PO SCH (09:07)
[2019-08-12] MEDS: ARIPiprazole 10 MG TABLET PO SCH (09:07)
[2019-08-12] MEDS: LevETIRAcetam 500 MG TABLET PO SCH ×2 (09:07→16:39)
[2019-08-12] MEDS: GABAPENTIN 300 MG CAPSULE PO SCH ×2 (09:08→16:39)
[2019-08-12] MEDS: BACITRACIN 28.4 GM OINTMENT TP SCH ×2 (09:08→17:06)
[2019-08-12] MEDS: LISINOPRIL 20 MG TABLET PO SCH (09:08)
[2019-08-12 17:16] VITALS: BP 124/69
[2019-08-12] MEDS: ATORVASTATIN CALCIUM 20 MG TABLET PO SCH (20:38)
[2019-08-12] MEDS: ZOLPIDEM TARTRATE 10 MG TABLET PO PRN (23:59)
[2019-08-13] VITALS: BP 120/81
[2019-08-13 08:30] VITALS: BP 123/74
[2019-08-13] MEDS: LevETIRAcetam 500 MG TABLET PO SCH ×2 (09:01→16:28)
[2019-08-13] MEDS: ARIPiprazole 10 MG TABLET PO SCH (09:01)
[2019-08-13] MEDS: ESCITALOPRAM OXALATE 20 MG TABLET PO SCH (09:01)
[2019-08-13] MEDS: GABAPENTIN 300 MG CAPSULE PO SCH ×2 (09:01→16:28)
[2019-08-13] MEDS: BACITRACIN 28.4 GM OINTMENT TP SCH ×2 (09:01→17:13)
[2019-08-13] MEDS: LISINOPRIL 20 MG TABLET PO SCH (09:01)
[2019-08-13 16:07] VITALS: BP 136/60
[2019-08-13] MEDS: ATORVASTATIN CALCIUM 20 MG TABLET PO SCH (21:01)
[2019-08-13] MEDS: ZOLPIDEM TARTRATE 10 MG TABLET PO PRN (21:02)
[2019-08-14 00:20] VITALS: BP 119/78
[2019-08-14] MEDS: LevETIRAcetam 500 MG TABLET PO SCH ×2 (08:12→16:28)
[2019-08-14] MEDS: GABAPENTIN 300 MG CAPSULE PO SCH ×2 (08:12→16:28)
[2019-08-14] MEDS: ESCITALOPRAM OXALATE 20 MG TABLET PO SCH (08:12)
[2019-08-14] MEDS: ARIPiprazole 10 MG TABLET PO SCH (08:12)
[2019-08-14] MEDS: LISINOPRIL 20 MG TABLET PO SCH (08:12)
[2019-08-14] MEDS: BACITRACIN 28.4 GM OINTMENT TP SCH ×2 (08:13→18:12)
[2019-08-14 08:39] VITALS: BP 121/71
[2019-08-14 16:09] VITALS: BP 106/74
[2019-08-14] MEDS: ATORVASTATIN CALCIUM 20 MG TABLET PO SCH (20:50)
[2019-08-14] MEDS: ZOLPIDEM TARTRATE 10 MG TABLET PO PRN (20:50)
[2019-08-15] VITALS (7 sets, daily range): BP systolic 110–161; BP diastolic 68–79
[2019-08-15] MEDS: LISINOPRIL 20 MG TABLET PO SCH (09:00)
[2019-08-15] MEDS: LORazepam 2 MG TABLET PO PRN (09:00)
[2019-08-15] MEDS: LevETIRAcetam 500 MG TABLET PO SCH ×2 (09:00→17:36)
[2019-08-15] MEDS: BACITRACIN 28.4 GM OINTMENT TP SCH ×2 (09:00→17:26)
[2019-08-15] MEDS: ARIPiprazole 10 MG TABLET PO SCH (09:00)
[2019-08-15] MEDS: ESCITALOPRAM OXALATE 20 MG TABLET PO SCH (09:00)
[2019-08-15] MEDS: GABAPENTIN 300 MG CAPSULE PO SCH ×2 (09:00→17:25)
[2019-08-15] MEDS: IBUPROFEN 400 MG TABLET PO PRN (12:19)
[2019-08-15] MEDS: ZOLPIDEM TARTRATE 10 MG TABLET PO PRN (20:26)
[2019-08-15] MEDS: ATORVASTATIN CALCIUM 20 MG TABLET PO SCH (20:26)
[2019-08-16 00:37] VITALS: BP 132/76
[2019-08-16 02:00] VITALS: BP 132/76
[2019-08-16] MEDS: IBUPROFEN 400 MG TABLET PO PRN (02:03)
[2019-08-16 08:18] VITALS: BP 140/73
[2019-08-16] MEDS: LevETIRAcetam 500 MG TABLET PO SCH ×2 (08:37→16:10)
[2019-08-16] MEDS: ESCITALOPRAM OXALATE 20 MG TABLET PO SCH (08:37)
[2019-08-16] MEDS: ARIPiprazole 10 MG TABLET PO SCH (08:37)
[2019-08-16] MEDS: LISINOPRIL 20 MG TABLET PO SCH (08:37)
[2019-08-16] MEDS: GABAPENTIN 300 MG CAPSULE PO SCH ×2 (08:37→16:10)
[2019-08-16] MEDS: BACITRACIN 28.4 GM OINTMENT TP SCH ×2 (08:38→16:11)
[2019-08-16 16:08] VITALS: BP 124/73
[2019-08-16] MEDS: ATORVASTATIN CALCIUM 20 MG TABLET PO SCH (20:19)
[2019-08-17 01:36] VITALS: BP 121/68
[2019-08-17] MEDS: ZOLPIDEM TARTRATE 10 MG TABLET PO PRN (02:33)
[2019-08-17] MEDS: LevETIRAcetam 500 MG TABLET PO SCH ×2 (08:39→16:16)
[2019-08-17] MEDS: GABAPENTIN 300 MG CAPSULE PO SCH ×2 (08:39→16:16)
[2019-08-17] MEDS: ESCITALOPRAM OXALATE 20 MG TABLET PO SCH (08:39)
[2019-08-17] MEDS: ARIPiprazole 10 MG TABLET PO SCH (08:39)
[2019-08-17] MEDS: LISINOPRIL 20 MG TABLET PO SCH (08:39)
[2019-08-17] MEDS: BACITRACIN 28.4 GM OINTMENT TP SCH ×2 (08:40→16:17)
[2019-08-17 09:04] VITALS: BP 126/56
[2019-08-17 16:09] VITALS: BP 117/72
[2019-08-17] MEDS: ATORVASTATIN CALCIUM 20 MG TABLET PO SCH (20:04)
[2019-08-18 05:31] VITALS: BP 120/81
[2019-08-18] MEDS: ARIPiprazole 10 MG TABLET PO SCH (08:10)
[2019-08-18] MEDS: GABAPENTIN 300 MG CAPSULE PO SCH ×2 (08:10→16:37)
[2019-08-18] MEDS: ESCITALOPRAM OXALATE 20 MG TABLET PO SCH (08:10)
[2019-08-18] MEDS: LISINOPRIL 20 MG TABLET PO SCH (08:10)
[2019-08-18] MEDS: LevETIRAcetam 500 MG TABLET PO SCH ×2 (08:10→16:37)
[2019-08-18] MEDS: BACITRACIN 28.4 GM OINTMENT TP SCH ×2 (08:11→16:37)
[2019-08-18 08:29] VITALS: BP 123/68
[2019-08-18 16:10] VITALS: BP 138/69
[2019-08-18] MEDS: ATORVASTATIN CALCIUM 20 MG TABLET PO SCH (21:12)
[2019-08-19 00:28] VITALS: BP 126/81
[2019-08-19] MEDS: IBUPROFEN 400 MG TABLET PO PRN (03:19)
[2019-08-19 08:00] VITALS: BP 128/60
[2019-08-19] MEDS: ARIPiprazole 10 MG TABLET PO SCH (08:28)
[2019-08-19] MEDS: GABAPENTIN 300 MG CAPSULE PO SCH ×2 (08:28→16:43)
[2019-08-19] MEDS: LevETIRAcetam 500 MG TABLET PO SCH ×2 (08:29→16:44)
[2019-08-19] MEDS: LISINOPRIL 20 MG TABLET PO SCH (08:29)
[2019-08-19] MEDS: ESCITALOPRAM OXALATE 20 MG TABLET PO SCH (08:30)
[2019-08-19] MEDS: BACITRACIN 28.4 GM OINTMENT TP SCH ×2 (08:30→16:57)
[2019-08-19] MEDS ORDERED: ARIP10TA8 PO ×2 (09:55→14:37)
[2019-08-19] MEDS ORDERED: ESCI20TA36 PO (09:55)
[2019-08-19] MEDS ORDERED: LISI-662 PO (14:25)
[2019-08-19] MEDS ORDERED: BACI30OI6 TP (14:29)
[2019-08-19] MEDS ORDERED: ATOR20TA86 PO (14:29)
[2019-08-19] MEDS ORDERED: LEVE500T53 PO (14:29)
[2019-08-19] MEDS ORDERED: GABA-531 PO (14:29)
[2019-08-19] MEDS ORDERED: ESCI20TA PO (14:37)
[2019-08-19 16:09] VITALS: BP 116/75
[2019-08-19] MEDS: ATORVASTATIN CALCIUM 20 MG TABLET PO SCH (20:42)
[2019-08-19] MEDS: ZOLPIDEM TARTRATE 10 MG TABLET PO PRN (20:42)
[2019-08-20] MEDS: LORazepam 2 MG TABLET PO PRN (00:11)
[2019-08-20 00:27] VITALS: BP 127/82
[2019-08-20] MEDS: LevETIRAcetam 500 MG TABLET PO SCH (08:15)
[2019-08-20] MEDS: ARIPiprazole 10 MG TABLET PO SCH (08:15)
[2019-08-20] MEDS: ESCITALOPRAM OXALATE 20 MG TABLET PO SCH (08:15)
[2019-08-20] MEDS: GABAPENTIN 300 MG CAPSULE PO SCH (08:15)
[2019-08-20] MEDS: BACITRACIN 28.4 GM OINTMENT TP SCH (08:16)
[2019-08-20] MEDS: LISINOPRIL 20 MG TABLET PO SCH (08:16)
[2019-08-20 08:26] VITALS: BP 140/80
[2019-08-20] MEDS ORDERED: ESCI20TA PO (08:48)
[2019-08-20] MEDS ORDERED: ARIP10TA8 PO (08:48)
== END 2019-08-20 09:30 | disposition home or self-care (01) | DRG 885 ==
LOC: EMS 23:02 → B2X 08-06 10:57
DX: F33.3 Major depressive disorder, recurrent, severe with psychotic symptoms (principal); R45.851 Suicidal ideations; Z59.0 Homelessness; I10 Essential (primary) hypertension; G40.909 Epilepsy, unspecified, not intractable, without status epilepticus; E83.51 Hypocalcemia; E78.5 Hyperlipidemia, unspecified; F17.200 Nicotine dependence, unspecified, uncomplicated; F10.20 Alcohol dependence, uncomplicated; G89.29 Other chronic pain; K59.00 Constipation, unspecified
CPT/HCPCS: G0480; G0482

== ENCOUNTER 2019-08-15 13:28 | Emergency (ER) | payer MEDICARE ==
[~2019-08-15] VITALS: Ht 182.9 cm; Wt 90.5 kg
[2019-08-15] MEDS ORDERED: ACETAMINOPHEN 500 MG TABLET PO ONE (14:30)
[2019-08-15 15:43] VITALS: BP 122/79
== END 2019-08-15 16:09 | disposition home or self-care (01) ==
LOC: EMS 13:30
DX: S50.312A Abrasion of left elbow, initial encounter (principal); F32.9 Major depressive disorder, single episode, unspecified; I10 Essential (primary) hypertension; F17.210 Nicotine dependence, cigarettes, uncomplicated; W18.30XA Fall on same level, unspecified, initial encounter; Y93.89 Activity, other specified; Y92.89 Other specified places as the place of occurrence of the external cause; Y99.8 Other external cause status

== ENCOUNTER 2022-06-17 16:37 | Inpatient (IN) | payer MEDICARE, MEDICAID ==
[~2022-06-17] VITALS: Ht 172.7 cm; Wt 93.0 kg
[~2022-06-17 16:37] MED LIST changes: -AMLO5TAB4 PO; -ASPI-556 PO; -DULO20CA30 PO; +SERT-162 PO
[2022-06-17] MEDS ORDERED: HEPA500018 SQ (20:17)
[2022-06-17] MEDS ORDERED: QUET200T PO (20:20)
[2022-06-18] MEDS ORDERED: HALOPERIDOL 5 MG TABLET PO PRN (02:15)
[2022-06-18] MEDS ORDERED: ZOLPIDEM TARTRATE 10 MG TABLET PO PRN (02:15)
[2022-06-18] MEDS ORDERED: LORazepam 2 MG TABLET PO PRN (02:15)
[2022-06-18 08:10] VITALS: BP 135/84
[2022-06-18] MEDS ORDERED: QUEtiapine FUMARATE 200 MG TABLET PO SCH (11:00)
[2022-06-18] MEDS: SERTRALINE HCL 100 MG TABLET PO SCH (13:18)
[2022-06-18] MEDS ORDERED: GuaiFENesin/D-METHORPHAN [SUGAR-FREE] 200-20MG/10 ML SYRUP UDCUP PO PRN (17:45)
[2022-06-18] MEDS ORDERED: CloNIDine HCL 0.1 MG TABLET PO PRN (17:45)
[2022-06-18] MEDS ORDERED: ONDANSETRON HCL 4 MG TABLET PO PRN (17:45)
[2022-06-18] MEDS ORDERED: LOPERAMIDE HCL 2 MG CAPSULE PO PRN (17:45)
[2022-06-18] MEDS ORDERED: DOCUSATE SODIUM 100 MG CAPSULE PO PRN (17:45)
[2022-06-18] MEDS ORDERED: ACETAMINOPHEN 325 MG TABLET PO PRN (17:45)
[2022-06-18] MEDS ORDERED: PETROLATUM,WHITE 28 GM JELLY TP PRN (17:45)
[2022-06-18] MEDS ORDERED: MAG HYDROX/AL HYDROX/SIMETH ES 30 ML SUSPENSION UDCUP PO PRN (17:45)
[2022-06-18] MEDS ORDERED: ALBUTEROL SULFATE HFA 90 MCG/PUFF 8 GM INHALER IH PRN (17:45)
[2022-06-18] MEDS ORDERED: IBUPROFEN 400 MG TABLET PO PRN (17:45)
[2022-06-18] MEDS ORDERED: MAGNESIUM HYDROXIDE SUSPENSION 30 ML UDCUP PO PRN (17:45)
[2022-06-18] MEDS ORDERED: NICOTINE 14 MG/24 HOUR PATCH TD PRN (17:45)
[2022-06-18] MEDS: QUEtiapine FUMARATE 200 MG TABLET PO SCH (20:27)
[2022-06-19] MEDS ORDERED: PNEUMOCOCCAL VACCINE POLYVALENT 0.5 ML VIAL [PPSV23] IM. ONE (05:15)
[2022-06-19] MEDS: QUEtiapine FUMARATE 200 MG TABLET PO SCH ×2 (12:05→20:14)
[2022-06-19] MEDS: SERTRALINE HCL 100 MG TABLET PO SCH (12:05)
[2022-06-20 08:05] VITALS: BP 126/50
[2022-06-20] MEDS: SERTRALINE HCL 100 MG TABLET PO SCH (09:30)
[2022-06-20] MEDS: QUEtiapine FUMARATE 200 MG TABLET PO SCH ×2 (09:30→20:25)
[2022-06-20] MEDS ORDERED: QUET300T19 PO (15:36)
[2022-06-20] MEDS ORDERED: LOSA-382 PO (15:36)
[2022-06-20] MEDS ORDERED: ATOR20TA65 PO (15:36)
[2022-06-20] MEDS ORDERED: AMLO10TA55 PO (15:36)
[2022-06-20] MEDS ORDERED: TAMS-13 PO (15:36)
[2022-06-20] MEDS ORDERED: ARIP15TA27 PO (15:36)
[2022-06-20] MEDS ORDERED: QUET100T34 PO (15:36)
[2022-06-21 08:15] VITALS: BP 118/68
[2022-06-21] MEDS: SERTRALINE HCL 100 MG TABLET PO SCH (08:23)
[2022-06-21] MEDS: QUEtiapine FUMARATE 200 MG TABLET PO SCH ×2 (08:24→20:32)
[2022-06-21 08:49] VITALS: BP 118/68
[2022-06-21 20:19] VITALS: BP 110/65
[2022-06-22 08:03] VITALS: BP 130/78
[2022-06-22] MEDS: QUEtiapine FUMARATE 200 MG TABLET PO SCH ×2 (08:41→20:30)
[2022-06-22] MEDS: SERTRALINE HCL 100 MG TABLET PO SCH (08:42)
[2022-06-22 20:09] VITALS: BP 126/60
[2022-06-23 08:06] VITALS: BP 140/80
[2022-06-23] MEDS: SERTRALINE HCL 100 MG TABLET PO SCH (08:31)
[2022-06-23] MEDS: QUEtiapine FUMARATE 200 MG TABLET PO SCH ×2 (08:31→21:30)
[2022-06-24 08:03] VITALS: BP 160/80
[2022-06-24] MEDS: QUEtiapine FUMARATE 200 MG TABLET PO SCH ×2 (08:15→20:43)
[2022-06-24] MEDS: SERTRALINE HCL 100 MG TABLET PO SCH (08:15)
[2022-06-24 10:01] LABS: GLUCOMETER DEV NAME(LOC) POC.BV
[2022-06-24 20:00] VITALS: BP 102/65
[2022-06-25 08:11] VITALS: BP 140/70
[2022-06-25] MEDS: SERTRALINE HCL 100 MG TABLET PO SCH (08:51)
[2022-06-25] MEDS: QUEtiapine FUMARATE 200 MG TABLET PO SCH ×2 (08:51→20:07)
[2022-06-25 20:34] VITALS: BP 134/81
[2022-06-26 08:51] VITALS: BP 140/90
[2022-06-26] MEDS: SERTRALINE HCL 100 MG TABLET PO SCH (09:12)
[2022-06-26] MEDS: QUEtiapine FUMARATE 200 MG TABLET PO SCH ×2 (09:12→20:21)
[2022-06-26 20:11] VITALS: BP 137/72
[2022-06-27] MEDS: SERTRALINE HCL 100 MG TABLET PO SCH (08:12)
[2022-06-27] MEDS: QUEtiapine FUMARATE 200 MG TABLET PO SCH ×2 (08:12→22:44)
[2022-06-27 08:19] VITALS: BP 156/75
[2022-06-28 08:15] VITALS: BP 141/79
[2022-06-28] MEDS: QUEtiapine FUMARATE 200 MG TABLET PO SCH ×2 (08:27→20:27)
[2022-06-28] MEDS: SERTRALINE HCL 100 MG TABLET PO SCH (08:27)
[2022-06-28 20:16] VITALS: BP 128/81
[2022-06-29 08:35] VITALS: BP 114/68
[2022-06-29] MEDS: SERTRALINE HCL 100 MG TABLET PO SCH (09:43)
[2022-06-29] MEDS: QUEtiapine FUMARATE 200 MG TABLET PO SCH ×2 (09:43→20:09)
[2022-06-29 20:45] VITALS: BP 135/80
[2022-06-30] MEDS: QUEtiapine FUMARATE 200 MG TABLET PO SCH ×2 (08:12→20:42)
[2022-06-30] MEDS: SERTRALINE HCL 100 MG TABLET PO SCH (08:12)
[2022-06-30 08:45] VITALS: BP 113/65
[2022-06-30 20:12] VITALS: BP 129/73
[2022-07-01] MEDS: QUEtiapine FUMARATE 200 MG TABLET PO SCH ×2 (08:39→20:41)
[2022-07-01] MEDS: SERTRALINE HCL 100 MG TABLET PO SCH (08:39)
[2022-07-02] MEDS: QUEtiapine FUMARATE 200 MG TABLET PO SCH ×2 (08:34→20:24)
[2022-07-02] MEDS: SERTRALINE HCL 100 MG TABLET PO SCH (08:34)
[2022-07-02 09:22] VITALS: BP 139/73
[2022-07-02 09:31] LABS: GLUCOMETER DEV NAME(LOC) POC.BV
[2022-07-03] MEDS: SERTRALINE HCL 100 MG TABLET PO SCH (08:21)
[2022-07-03] MEDS: QUEtiapine FUMARATE 200 MG TABLET PO SCH ×2 (08:21→21:17)
[2022-07-04 09:23] VITALS: BP 144/88
[2022-07-04] MEDS: QUEtiapine FUMARATE 200 MG TABLET PO SCH ×2 (10:02→20:31)
[2022-07-04] MEDS: SERTRALINE HCL 100 MG TABLET PO SCH (10:03)
[2022-07-04 20:13] VITALS: BP 136/85
[2022-07-05 08:42] VITALS: BP 121/70
[2022-07-05] MEDS: QUEtiapine FUMARATE 200 MG TABLET PO SCH ×2 (09:21→20:37)
[2022-07-05] MEDS: SERTRALINE HCL 100 MG TABLET PO SCH (09:21)
[2022-07-05 22:04] VITALS: BP 142/90
[2022-07-06] MEDS: SERTRALINE HCL 100 MG TABLET PO SCH ×2 (09:00→10:02)
[2022-07-06] MEDS: QUEtiapine FUMARATE 200 MG TABLET PO SCH ×3 (09:00→20:29)
[2022-07-06 20:39] VITALS: BP 138/75
[2022-07-07 08:28] VITALS: BP 118/70
[2022-07-07] MEDS: QUEtiapine FUMARATE 200 MG TABLET PO SCH ×2 (09:05→20:15)
[2022-07-07 20:00] VITALS: BP 149/78
[2022-07-08] MEDS: QUEtiapine FUMARATE 200 MG TABLET PO SCH ×2 (08:54→20:12)
[2022-07-08] MEDS: SERTRALINE HCL 100 MG TABLET PO SCH (08:54)
[2022-07-08 20:04] VITALS: BP 146/82
[2022-07-09] MEDS: SERTRALINE HCL 100 MG TABLET PO SCH (08:31)
[2022-07-09] MEDS: QUEtiapine FUMARATE 200 MG TABLET PO SCH ×2 (08:31→20:31)
[2022-07-09 08:43] VITALS: BP 138/76
[2022-07-09 10:41] LABS: GLUCOMETER DEV NAME(LOC) POC.BV
[2022-07-09 21:13] VITALS: BP 139/62
[2022-07-10 08:40] VITALS: BP 155/63
[2022-07-10] MEDS ORDERED: QUET200T30 PO (08:41)
[2022-07-10] MEDS ORDERED: SERT-440 PO (08:41)
[2022-07-10] MEDS: QUEtiapine FUMARATE 200 MG TABLET PO SCH ×2 (09:40→20:01)
[2022-07-10] MEDS: SERTRALINE HCL 100 MG TABLET PO SCH (09:40)
[2022-07-10 21:08] VITALS: BP 135/62
[2022-07-11] MEDS: SERTRALINE HCL 100 MG TABLET PO SCH (08:15)
[2022-07-11] MEDS: QUEtiapine FUMARATE 200 MG TABLET PO SCH (08:15)
[2022-07-11 08:53] VITALS: BP 128/65
== END 2022-07-11 10:00 | DRG 885 ==
LOC: B2X 06-18 01:25 → UNDOADMIN 06-18 03:06 → B2X 06-18 03:06
PROVIDERS: ADMIT Psychiatry & Neurology Psychiatry; ATTEND Psychiatry & Neurology Psychiatry
DX: F25.1 Schizoaffective disorder, depressive type (principal); F10.239 Alcohol dependence with withdrawal, unspecified; F32.A Depression, unspecified; K21.9 Gastro-esophageal reflux disease without esophagitis; R56.9 Unspecified convulsions; E11.9 Type 2 diabetes mellitus without complications; I10 Essential (primary) hypertension; Z20.822 Contact with and (suspected) exposure to COVID-19; Z59.00 Homelessness unspecified; Z95.0 Presence of cardiac pacemaker; Z79.899 Other long term (current) drug therapy

== ENCOUNTER 2024-02-16 14:53 | Inpatient (IN) | payer MEDICARE, MEDICAID ==
[~2024-02-16] VITALS: Ht 175.3 cm; Wt 90.7 kg
[~2024-02-16 14:53] MED LIST changes: +ATOR40TA28 PO; +DIVA-112 PO; +QUET200T PO; +TAMS0.4C94 PO
[2024-02-16 16:16] LABS: PH,URINE DRUG SCREEN 6.5 (5.0-8.0)
[2024-02-16 16:19] LABS: BASOPHILS % (AUTO) 0.7 % (0.0-2.0); EOSINOPHILS % (AUTO) 2.4 % (1.0-6.0); HEMATOCRIT 37.5 % (41-53); HEMOGLOBIN 12.5 g/dL (13.5-17.5); LYMPHOCYTES # (AUTO) 2.8 K/uL (1.0-4.8); LYMPHOCYTES % (AUTO) 42.3 % (22.0-44.0); MEAN CORPUSCULAR HEMOGLOBIN 30.5 pg (26.0-34.0); MEAN CORPUSCULAR HGB CONC 33.3 G/dL (31.0-37.0); MEAN CORPUSCULAR VOLUME 92 fL (80-100); MONOCYTES # (AUTO) 0.6 K/uL (0.1-1.0); NEUTROPHILS % (AUTO) 45.6 % (40.0-70.0); PLATELET COUNT (AUTO) 223 K/uL (150-450); WHITE BLOOD COUNT (AUTO) 6.6 K/uL (4.5-11.0)
[2024-02-16 16:27] LABS: ANION GAP 11 mmol/L (8-16); CALCIUM, TOTAL 8.8 mg/dL (8.8-10.5); CARBON DIOXIDE 29 mmol/L (22-29); CHLORIDE 101 mmol/L (98-107); CREATININE 0.94 mg/dL (0.60-1.30); GLOMERULAR FILTR. RATE CALC > 60 mL/min (>60); GLUCOSE,RANDOM 109 mg/dL (70-110); POTASSIUM 4.1 mmol/L (3.5-5.1); SODIUM SERUM 141 mmol/L (136-145); UREA NITROGEN, BLOOD 23 mg/dL (7-18)
[2024-02-16] MEDS ORDERED: ZOLPIDEM TARTRATE 10 MG TABLET PO PRN ×2 (16:30→17:15)
[2024-02-16] MEDS ORDERED: LORazepam 2 MG TABLET PO PRN ×2 (16:30→17:15)
[2024-02-16] MEDS ORDERED: HALOPERIDOL 5 MG TABLET PO PRN (16:30)
[2024-02-16 16:32] LABS: ALANINE AMINOTRANSFERASE 31 U/L (12-78); ALBUMIN 3.5 g/dL (3.4-5.0); ALKALINE PHOSPHATASE 105 U/L (46-116); ASPARTATE AMINOTRANSFERASE 20 U/L (15-37); BILIRUBIN,TOTAL 0.2 mg/dL (0.1-1.0)
[2024-02-16 16:38] LABS: ALCOHOL, BLOOD (SERUM) < 3 mg/dL (0-10)
[2024-02-16 16:39] LABS: ALCOHOL, URINE DRUG SCREEN NEGATIVE (NEGATIVE); AMPHET/METH SCREEN,URINE NEGATIVE (NEGATIVE); BARBITURATE SCREEN, URINE NEGATIVE (NEGATIVE); BENZODIAZEPINES SCREEN,URINE NEGATIVE (NEGATIVE); CANNABINOID SCREEN,URINE NEGATIVE (NEGATIVE); COCAINE SCREEN,URINE NEGATIVE (NEGATIVE); METHADONE SCREEN, URINE NEGATIVE (NEGATIVE); OPIATE SCREEN,URINE NEGATIVE (NEGATIVE); PHENCYCLIDINE SCREEN,URINE NEGATIVE (NEGATIVE)
[2024-02-16 17:21] LABS: COVID AG,FIA SOURCE NASAL SWAB
[2024-02-16 17:44] LABS: SARS-COV2 (COVID) ANTIGEN,FIA Negative (Negative)
[2024-02-16 20:23] VITALS: RESP 18
[2024-02-16] MEDS ORDERED: DOCUSATE SODIUM 100 MG CAPSULE PO PRN (21:45)
[2024-02-16] MEDS ORDERED: IBUPROFEN 600 MG TABLET PO PRN (21:45)
[2024-02-16] MEDS ORDERED: CloNIDine HCL 0.1 MG TABLET PO PRN (21:45)
[2024-02-16] MEDS ORDERED: PETROLATUM,WHITE 28 GM JELLY TP PRN (21:45)
[2024-02-16] MEDS ORDERED: LOPERAMIDE HCL 2 MG CAPSULE PO PRN (21:45)
[2024-02-16] MEDS ORDERED: OMEPRAZOLE 20 MG CAPSULE PO PRN (21:45)
[2024-02-16] MEDS ORDERED: MAG HYDROX/ALUMINUM HYD/SIMETH ES 30 ML SUSPENSION UDCUP PO PRN (21:45)
[2024-02-16] MEDS ORDERED: BACITRACIN 28 GM OINTMENT TP PRN (21:45)
[2024-02-16] MEDS ORDERED: ACETAMINOPHEN 325 MG TABLET PO PRN (21:45)
[2024-02-16] MEDS ORDERED: ALBUTEROL SULFATE HFA 90 MCG/PUFF 8 GM INHALER IH PRN (21:45)
[2024-02-16] MEDS ORDERED: ONDANSETRON HCL 4 MG TABLET PO PRN (21:45)
[2024-02-16] MEDS ORDERED: BENZOCAINE/MENTHOL LOZENGE PO PRN (21:45)
[2024-02-16] MEDS ORDERED: MAGNESIUM HYDROXIDE SUSPENSION 30 ML UDCUP PO PRN (21:45)
[2024-02-17] MEDS ORDERED: DEXTROSE 50%-WATER 25 GM/50 ML SYRINGE IVP PRN (06:00)
[2024-02-17] MEDS: TAMSULOSIN HCL 0.4 MG CAPSULE PO SCH (09:00)
[2024-02-17 11:55] LABS: GLUCOMETER DEV NAME(LOC) 3E.C; GLUCOSE,POINT OF CARE 82 MG/DL (70-110)
[2024-02-17 15:12] VITALS: RESP 18
[2024-02-17 15:34] VITALS: BP 132/66; PULSE 79; RESP 18; TEMP 98
[2024-02-17 17:45] LABS: GLUCOMETER DEV NAME(LOC) 3E.C; GLUCOSE,POINT OF CARE 116 MG/DL (70-110)
[2024-02-17] MEDS: HALOPERIDOL 5 MG TABLET PO PRN (19:49)
[2024-02-17] MEDS: ATORVASTATIN CALCIUM 40 MG TABLET PO SCH (21:00)
[2024-02-17] MEDS: QUEtiapine FUMARATE 200 MG TABLET PO SCH (21:00)
[2024-02-17] MEDS: DIVALPROEX SODIUM 500 MG DR TABLET PO SCH (21:00)
[2024-02-17 21:12] VITALS: RESP 18
[2024-02-18] MEDS: SERTRALINE HCL 50 MG TABLET PO SCH (09:48)
[2024-02-18] MEDS: INSULIN LISPRO 100 UNITS/ML SQ PRN (17:40)
[2024-02-18 17:56] LABS: GLUCOMETER DEV NAME(LOC) 3E.C; GLUCOSE,POINT OF CARE 203 MG/DL (70-110)
[2024-02-19 07:31] LABS: GLUCOMETER DEV NAME(LOC) 3E.C; GLUCOSE,POINT OF CARE 105 MG/DL (70-110)
[2024-02-19 17:51] LABS: GLUCOMETER DEV NAME(LOC) 3E.C; GLUCOSE,POINT OF CARE 111 MG/DL (70-110)
[2024-02-19 18:28] VITALS: RESP 17; TEMP 98
[2024-02-19 21:44] VITALS: RESP 18; RESP 19; TEMP 97.6
[2024-02-20 22:02] VITALS: BP 156/83; PULSE 68; RESP 18; TEMP 98.3
[2024-02-21 15:00] VITALS: RESP 18
[2024-02-21 16:35] LABS: GLUCOMETER DEV NAME(LOC) 3E.C; GLUCOSE,POINT OF CARE 123 MG/DL (70-110)
== END 2024-02-21 17:05 | DRG 885 ==
LOC: EMS 14:56 → 3EC 17:04
PROVIDERS: ADMIT Psychiatry & Neurology Psychiatry; ATTEND Psychiatry & Neurology Child & Adolescent Psychiatry
PROC: GZ52ZZZ Individual Psychotherapy, Cognitive (ICD-10-PCS; principal; 2024-02-17)
DX: F25.1 Schizoaffective disorder, depressive type (principal); I10 Essential (primary) hypertension; E11.9 Type 2 diabetes mellitus without complications; K21.9 Gastro-esophageal reflux disease without esophagitis; N40.0 Benign prostatic hyperplasia without lower urinary tract symptoms; E78.5 Hyperlipidemia, unspecified; F17.210 Nicotine dependence, cigarettes, uncomplicated; D64.9 Anemia, unspecified; Z20.822 Contact with and (suspected) exposure to COVID-19; F41.9 Anxiety disorder, unspecified; Z79.899 Other long term (current) drug therapy
CPT/HCPCS: 80053; 80307; 82962; 85025; 99285; G0480

== ENCOUNTER 2025-08-09 09:43 | Inpatient (IN) | payer MEDICARE, MEDICAID ==
[~2025-08-09] VITALS: Ht 167.6 cm; Wt 81.4 kg
[2025-08-09] MEDS ORDERED: SERT-158 PO (10:04)
[2025-08-09] MEDS ORDERED: METF-1211 PO ×2 (10:04→18:41)
[2025-08-09] MEDS ORDERED: AMLO2.5T96 PO ×2 (10:04→18:41)
[2025-08-09] MEDS ORDERED: CLON0.1T2 PO (10:04)
[2025-08-09] MEDS: LORazepam 2 MG/ML VIAL IM ONE (10:11)
[2025-08-09] MEDS: ZIPRASIDONE MESYLATE 20 MG/VIAL IM ONE (11:19)
[2025-08-09] MEDS ORDERED: ZOLPIDEM TARTRATE 10 MG TABLET PO PRN (11:45)
[2025-08-09 12:16] LABS: PLATELET COUNT (AUTO) 231 K/uL (150-450); RED BLOOD CELL COUNT(AUTO) 3.97 MIL/uL (4.50-5.90); RED CELL DISTRIBUTION WIDTH 14.8 % (11.5-14.5); WHITE BLOOD COUNT (AUTO) 8.0 K/uL (4.5-11.0)
[2025-08-09 12:20] LABS: APPEARANCE,URINE CLEAR (CLEAR); GLUCOSE, URINE (UA) NEGATIVE (NEGATIVE); LEUKOCYTE ESTERASE ,URINE NEGATIVE (NEGATIVE); NITRATE,URINE NEGATIVE (NEGATIVE); OCCULT BLOOD,URINE NEGATIVE (NEGATIVE); SPECIFIC GRAVITIY, URINE 1.014 (1.003-1.030)
[2025-08-09 12:26] LABS: CALCIUM, TOTAL 8.7 mg/dL (8.8-10.5); CREATININE 0.75 mg/dL (0.60-1.30); GLOMERULAR FILTR. RATE CALC > 60 mL/min (>60); GLUCOSE,RANDOM 100 mg/dL (70-110); SODIUM SERUM 142 mmol/L (136-145); UREA NITROGEN, BLOOD 15 mg/dL (7-18)
[2025-08-09 12:30] LABS: SQUAMOUS EPITHELIAL CELL,UR Few /LPF (None Seen)
[2025-08-09 12:33] LABS: TROPONIN I-HIGH SENSITIVITY 9 ng/L (<76)
[2025-08-09 14:28] VITALS: O2SAT 96
[2025-08-09 15:26] LABS: COVID AG,FIA SOURCE NASAL SWAB
[2025-08-09 15:58] LABS: SARS-COV2 (COVID) ANTIGEN,FIA Negative (Negative)
[2025-08-09 16:45] VITALS: BP 152/77; RESP 16; TEMP 97.9
[2025-08-09] MEDS ORDERED: TAMS0.4C94 PO (18:41)
[2025-08-09] MEDS ORDERED: ATOR40TA28 PO (18:41)
[2025-08-09] MEDS: ATORVASTATIN CALCIUM 40 MG TABLET PO SCH (20:26)
[2025-08-09 20:51] VITALS: RESP 18
[2025-08-10] MEDS: TAMSULOSIN HCL 0.4 MG CAPSULE PO SCH (08:15)
[2025-08-10 10:27] VITALS: RESP 19; TEMP 97.6
[2025-08-10] MEDS: SERTRALINE HCL 50 MG TABLET PO SCH (15:47)
[2025-08-10] MEDS: DIVALPROEX SODIUM 500 MG DR TABLET PO SCH (16:32)
[2025-08-10] MEDS ORDERED: DOCUSATE SODIUM 100 MG CAPSULE PO PRN (23:00)
[2025-08-10] MEDS ORDERED: BENZOCAINE/MENTHOL [CEPACOL] LOZENGE PO PRN (23:00)
[2025-08-10] MEDS ORDERED: LOPERAMIDE HCL 2 MG CAPSULE PO PRN (23:00)
[2025-08-10] MEDS ORDERED: ALBUTEROL SULFATE HFA 90 MCG/PUFF 8 GM INHALER IH PRN (23:00)
[2025-08-10] MEDS ORDERED: PETROLATUM,WHITE 28 GM JELLY TP PRN (23:00)
[2025-08-10] MEDS ORDERED: BACITRACIN 28 GM OINTMENT TP PRN (23:00)
[2025-08-10] MEDS ORDERED: ONDANSETRON 4 MG TABLET PO PRN (23:00)
[2025-08-10] MEDS ORDERED: MAGNESIUM HYDROXIDE SUSPENSION 30 ML UDCUP PO PRN (23:00)
[2025-08-10] MEDS ORDERED: OMEPRAZOLE 20 MG CAPSULE PO PRN (23:00)
[2025-08-10] MEDS ORDERED: MAG HYDROX/ALUMINUM HYD/SIMETH ES 30 ML SUSPENSION UDCUP PO PRN (23:00)
[2025-08-10] MEDS ORDERED: ACETAMINOPHEN 325 MG TABLET PO PRN (23:00)
[2025-08-11 09:59] VITALS: RESP 18
[2025-08-11 20:52] VITALS: RESP 18
[2025-08-12 08:00] VITALS: RESP 18
[2025-08-12 21:19] VITALS: RESP 19; TEMP 98
[2025-08-13 11:23] VITALS: BP 123/74; PULSE 82; RESP 19; TEMP 98.8; O2SAT 98
[2025-08-13 20:04] VITALS: RESP 18
[2025-08-14 10:42] VITALS: BP 108/93; PULSE 69; RESP 18; TEMP 98.1; O2SAT 99
[2025-08-14 22:57] VITALS: BP 107/60; PULSE 64; RESP 18; TEMP 97.8; O2SAT 95
[2025-08-15 08:00] VITALS: RESP 17
[2025-08-15 22:34] VITALS: RESP 18
[2025-08-16 08:43] VITALS: BP 142/64; PULSE 84; RESP 18; TEMP 96.7; O2SAT 95
[2025-08-16 22:12] VITALS: RESP 18; TEMP 97.9
[2025-08-17 08:51] VITALS: BP 146/91; PULSE 63; RESP 18; TEMP 97.6; O2SAT 96
[2025-08-17 20:23] VITALS: RESP 18; TEMP 97.9
[2025-08-17 23:06] VITALS: RESP 18
[2025-08-17] MEDS: IBUPROFEN 600 MG TABLET PO PRN (23:06)
[2025-08-18] VITALS (8 sets, daily range): BP systolic 104–141; BP diastolic 64–78; PULSE 64–82; RESP 16–18; TEMP 96.8–98.4; O2SAT 96–97
[2025-08-18] MEDS ORDERED: LORazepam 2 MG/ML VIAL ONE (12:58)
[2025-08-18] MEDS: LORazepam 2 MG/ML VIAL IM ONE (13:09)
[2025-08-19 09:22] VITALS: BP 97/74; PULSE 74; RESP 18; TEMP 98.6; O2SAT 99
[2025-08-19 13:51] VITALS: BP 97/74; PULSE 74; RESP 18; TEMP 98.6; O2SAT 99
[2025-08-19 20:14] VITALS: RESP 18
[2025-08-20 08:38] VITALS: RESP 16
[2025-08-20 20:21] VITALS: RESP 16; TEMP 98
[2025-08-21 09:18] VITALS: BP 144/83; PULSE 62; RESP 18; TEMP 97.5; O2SAT 97
[2025-08-21 21:36] VITALS: BP 134/65; PULSE 69; RESP 18; TEMP 98.1; O2SAT 96
[2025-08-22 10:17] VITALS: BP 130/68; PULSE 82; RESP 18; TEMP 97.5; O2SAT 97
[2025-08-22 22:03] VITALS: RESP 17
[2025-08-23 12:56] VITALS: BP 129/78; PULSE 89; RESP 18; TEMP 97.2; O2SAT 98
[2025-08-24 08:56] VITALS: BP 110/69; PULSE 71; RESP 16; TEMP 97.9; O2SAT 97
[2025-08-25 10:46] VITALS: BP 102/54; PULSE 118; RESP 18; TEMP 97.7; O2SAT 98
[2025-08-25 20:03] VITALS: BP 118/60; PULSE 64; RESP 16; TEMP 97.8; O2SAT 98
[2025-08-26 09:42] VITALS: BP 96/66; PULSE 102; RESP 18; TEMP 97.8; O2SAT 98
[2025-08-26 20:30] VITALS: PULSE 65; RESP 18; TEMP 97.7; O2SAT 95
[2025-08-27 08:10] VITALS: BP 152/73; PULSE 66; RESP 18; TEMP 97.6; O2SAT 98
[2025-08-27 21:33] VITALS: RESP 18
[2025-08-28 09:19] VITALS: RESP 17
[2025-08-28 21:16] VITALS: RESP 18
[2025-08-29 10:04] VITALS: RESP 19
[2025-08-29 12:03] VITALS: BP 140/85; PULSE 68; RESP 20
[2025-08-29 20:44] VITALS: RESP 18
[2025-08-30 20:47] VITALS: BP 131/60; PULSE 71; RESP 18; TEMP 97.7
[2025-08-31 10:09] VITALS: BP 153/68; PULSE 65; RESP 18; O2SAT 97
[2025-08-31 20:48] VITALS: RESP 18
[2025-09-01 11:55] VITALS: BP 131/72; PULSE 66; RESP 17; TEMP 98.1; O2SAT 97
[2025-09-01 20:01] VITALS: RESP 18
[2025-09-02 11:37] VITALS: BP 141/82; RESP 17; TEMP 97.6
== END 2025-09-02 15:40 | DRG 885 ==
LOC: EMS 09:43 → 3EC 16:43
PROVIDERS: ADMIT Psychiatry & Neurology Psychiatry; ATTEND Psychiatry & Neurology Psychiatry
PROC: GZHZZZZ Group Psychotherapy (ICD-10-PCS; principal; 2025-08-10)
PROC: GZ52ZZZ Individual Psychotherapy, Cognitive (ICD-10-PCS; 2025-08-10)
DX: F25.0 Schizoaffective disorder, bipolar type (principal); E11.9 Type 2 diabetes mellitus without complications; I10 Essential (primary) hypertension; F32.9 Major depressive disorder, single episode, unspecified; Z20.822 Contact with and (suspected) exposure to COVID-19; E78.5 Hyperlipidemia, unspecified; N40.0 Benign prostatic hyperplasia without lower urinary tract symptoms; K21.9 Gastro-esophageal reflux disease without esophagitis; G47.00 Insomnia, unspecified; K59.00 Constipation, unspecified; F41.9 Anxiety disorder, unspecified; Z95.0 Presence of cardiac pacemaker; Z79.899 Other long term (current) drug therapy; Z87.891 Personal history of nicotine dependence
CPT/HCPCS: 80048; 80164; 81001; 84484; 85025; 96372; 99291; J1200; J1630; J2060; J3486